=== PATIENT | male | born 1955 | race Caucasian/White ===

== ENCOUNTER → 2018-06-25 10:56 | Outpatient (CLI) | payer OTHER, SELFPAY ==
[2018-06-18 15:38] VITALS: BMI 20.7
--- NOTE | 2018-06-25 10:58 | US_ITS ---
STUDY: SCROTUM ULTRASOUND REASON FOR EXAM: Male, 62 years old. Left testicular swelling. TECHNIQUE: Ultrasound evaluation of the scrotum was performed with color Doppler and static decker-scale imaging. COMPARISON: Prior comparison studies are not available for review at this time. FINDINGS: RIGHT TESTICLE INTRATESTICULAR: There is a normal size of the right testicle. The right testicle measures 5.5 x 3.2 x 3.7 cm. There is a homogenous echotexture. There is normal arterial and normal venous vascularity. There is no demonstrated right testicular mass or cyst. EXTRATESTICULAR: The epididymis is normal in size. The epididymis head measures 1.3 x 2.1 x 0.8 cm. There is normal vascularity of the epididymis. There is a well-defined cystic structure within the epididymis, without internal echoes, consistent with an epididymal cyst. There is a small hydrocele. There is no demonstrated varicocele. There is no demonstrated extratesticular mass or cyst. LEFT TESTICLE INTRATESTICULAR: There is a normal size of the left testicle. The left testicle measures 5.2 x 3.2 x 4.1 cm. There is a homogenous echotexture. There is normal arterial and normal venous vascularity. There is no demonstrated left testicular mass or cyst. EXTRATESTICULAR: The epididymis is difficult to visualize There is a large hydrocele. This compresses the left testis and epididymis. There appear to be some septations within the large hydrocele suggesting it may be a complex process. There is no demonstrated varicocele. There is no demonstrated extratesticular mass or cyst. US/Testicular with Arterial Flow IMPRESSION: 1. Normal bilateral testicles. 2. Very large left-sided hydrocele with septations suggesting possible pyocele versus hematocele. 3. Right-sided epididymal cyst. Electronically Signed: Julita Dunn MD at 12:02 EST , Service support ,
== END ==
PROVIDERS: Family Provider Family Medicine; PCP Family Medicine; Referring Provider Surgery; Visit Provider Surgery
DX: N50.89 Other specified disorders of the male genital organs (principal)
CPT/HCPCS: 76870; 93976

== ENCOUNTER → 2018-07-03 16:57 | Outpatient (CLI) | payer OTHER, SELFPAY ==
[2018-06-18 15:38] VITALS: BMI 20.7
[2018-07-03 17:05] LABS: Bacteria 0 SEEN /hpf (None Seen); Mucous, Urine 0 SEEN /hpf (<or=2+); Red Blood Cells-Urine 0 SEEN /hpf (0-5); Squamous Epithelial Cells - UA 0 SEEN /hpf (0-5); White Blood Cells 0 SEEN /hpf (0-5)
[2018-07-03 17:58] LABS: Absolute Lymphocyte Count 2.26 X10^3/ul (0.83-4.51); Absolute Neutrophil Count 4.4 X10^3/uL (2.0-7.7); Basophil# 0.05 X10^3/uL; Basophil% 0.7 % (0-1); Eosinophil# 0.11 X10^3/uL; Eosinophils% 1.5 % (0-5); Hematocrit 44.8 % (40-54); Hemoglobin 14.7 g/dl (13.0-16.5); Lymphocyte # 2.26 X10^3/ul (4.0); Lymphocyte % 30.7 % (19-41); Mean Corp Hgb Conc 32.8 g/gl (32-36); Mean Corpuscular Hgb 29.9 pg (27.0-32.0); Mean Corpuscular Volume 91.2 fL (80-94); Mean Platelet Vol. 9.7 fl (6.2-12.0); Monocyte# 0.57 X10^3/uL; Monocyte% 7.7 % (0-10); Neutrophil # 4.36 X10^3/uL (2.7-7.7); Neutrophil % 59.3 % (47-70); Platelet Count 249 K/mm3 (150-450); RBC Distribution Width CV 14.1 % (11.6-14.6); RBC Distribution Width SD 46.8 fl (35.1-43.9); Red Blood Count 4.91 M/mm3 (4.6-6.2); White Blood Count 7.4 K/mm3 (4.4-11.0)
[2018-07-03 18:01] LABS: POSITIVE COUNT NO; POSITIVE DIFFERENTIAL NO; POSITIVE MORPHOLOGY NO
[2018-07-03 18:06] LABS: Color, Urine Yellow (Yellow); Glucose, Dipstick Normal (Normal); Ketone-Dipstick Negative (Negative); Leukocyte Esterase-Dipstick Negative /ul (Negative); Nitrite-Dipstick Negative (Negative); Occult Blood-Urine 10 /ul (Negative); Protein-Dipstick Negative (Negative); Urine Bilirubin Dipstick Negative (Negative); Urine Clarity Clear (Clear); Urine Urobilinogen Normal (Normal)
[2018-07-03 18:29] LABS: ALB/GLOB Ratio 1.2 RATIO (0.9-2.4); AST(SGOT) 17 U/L (15-37); Alanine Aminotransfer ALT/SGPT 24 U/L (16-61); Albumin, Serum 3.8 g/dL (3.2-5.0); Alkaline Phosphatase 61 U/L (45-117); Anion Gap 8 (5-15); BUN 18 mg/dL (7-18); BUN/Creat Ratio 17.8 RATIO (10-20); Calcium,Total 8.5 mg/dL (8.5-10.1); Chloride 103 mmol/L (98-107); Cholesterol 163 mg/dL (200); Creatinine, Serum 1.01 mg/dL (0.70-1.30); EST Glomerular Filtration Rate 79 mL/min (>60); Est Glom Filt Rate - Afr Amer 96 mL/min (>60); Globulin 3.3 g/dL (2.2-4.2); Glucose 100 mg/dL (74-106); High Density Lipoprotein 50 mg/dL; Potassium 3.8 mmol/L (3.5-5.1); Protein, Total 7.1 g/dL (6.4-8.2); Sodium Level 140 mmol/L (136-145); Thyroid Stim Hormone (TSH) 3.65 uIU/mL (0.358-3.74); Triglycerides 38 mg/dL; Very Low Density Lipoprotein 8 mg/dL (5-40)
== END ==
PROVIDERS: Family Provider Family Medicine; PCP Family Medicine; Referring Provider Family Medicine; Visit Provider Family Medicine
DX: Z01.818 Encounter for other preprocedural examination (principal)
CPT/HCPCS: 80053; 80061; 81001; 84443; 85025

== ENCOUNTER → 2018-07-08 10:37 | Outpatient (CLI) | payer OTHER, SELFPAY ==
[2018-06-18 15:38] VITALS: BMI 20.7
--- NOTE | 2018-07-08 10:40 | ECHOD_ITS ---
Reason For Study: Preop, Abn EKG Procedure This was a 2D Doppler, Color Flow transthoracic echocardiogram. Exam performed in department. Left Ventricle Normal LV size. Left ventricular systolic function is normal. The estimated ejection fraction is 60 %. Stage 1 diastolic dysfunction. No regional wall motion abnormalities noted. Right Ventricle Normal RV size. Normal systolic function. Atria Normal left atrium. Normal right atrium. Mitral Valve Normal mitral valve. Mild (1+) eccentric mitral valve insufficiency. Tricuspid Valve Normal tricuspid valve. Mild tricuspid valve insufficiency. Pulmonary artery systolic pressure is 28 mmHg. Aortic Valve Normal aortic valve. Trisinus/trileaflet aortic valve. Pulmonic Valve Normal pulmonic valve. Great Vessels Normal aortic root. The pulmonary artery is normal size. Normal inferior vena cava. Pericardium/Pleural No pericardial effusion. Medication Performed a rapid injection of agitated mix of 9 cc saline and 1cc air to assess for atrial septal defect. MMode/2D Measurements & Calculations LVIDd: 5.9 cm IVSd: 0.95 cm Ao root diam: 3.5 cm LVIDs: 4.3 cm LVPWd: 0.89 cm RVDd: 4.5 cm FS: 26.7 % LAV(MOD-bp): 28.4 ml LVAd ap4: 33.3 cm2 SV(MOD-sp4): 74.4 ml LAV(MOD-bp) Indexed: 16.5 ml/m2 EDV(MOD-sp4): 118.5 ml LAV(MOD-sp2): 32.0 ml EDV(sp4-el): 119.1 ml LAV(MOD-sp4): 22.2 ml LVAs ap4: 18.1 cm2 ESV(MOD-sp4): 44.1 ml ESV(sp4-el): 44.3 ml EF(MOD-sp4): 62.8 % EF(sp4-el): 62.8 % SV(sp4-el): 74.8 ml LA A4 area: 11.1 cm2 LA dimension(2D): 2.9 cm RA A4 area: 13.0 cm2 Doppler Measurements & Calculations MV E max lobo: 63.6 cm/sec Lat Peak E' Lobo: 9.6 cm/sec Med Peak E' Lobo: 5.4 cm/sec MV A max lobo: 75.5 cm/sec E/E' lat: 6.6 E/E' med: 11.9 MV E/A: 0.84 Ao V2 max: 133.7 cm/sec LV V1 max: 109.7 cm/sec PA V2 max: 88.3 cm/sec Ao max P.2 mmHg LV V1 max P.8 mmHg Ao V2 mean: 90.4 cm/sec Ao mean P.7 mmHg Ao V2 VTI: 28.2 cm TR max lobo: 245.0 cm/sec TR max P.0 mmHg Interpretation Summary Normal LV size. Left ventricular systolic function is normal. The estimated ejection fraction is 60 %. Stage 1 diastolic dysfunction. Mild (1+) eccentric mitral valve insufficiency. Mild tricuspid valve insufficiency. Ordering Physician: Cameron Stark Referring Physician: Cameron Stark Performed By: Zaina Campa, SHARRI, RVT
== END ==
PROVIDERS: Family Provider Family Medicine; PCP Family Medicine; Referring Provider Family Medicine; Visit Provider Family Medicine
DX: I51.7 Cardiomegaly (principal)
CPT/HCPCS: 93306; A4216

== ENCOUNTER 2018-07-29 05:11 | Day surgery (SDC) | payer SELFPAY, OTHER ==
[2018-06-18 15:38] VITALS: BMI 20.7
[2018-07-29] VITALS (8 sets, daily range): BP systolic 101–140; BP diastolic 73–86; PULSE 44–77; RESP 14–16; TEMP 36.1–37.7; O2SAT 94–98; BMI 23.8
--- NOTE | 2018-07-29 05:23 | EKG12_ITS ---
Test Reason : PRE OP Blood Pressure : / mmHG Vent. Rate : 068 BPM Atrial Rate : 068 BPM P-R Int : 166 ms QRS Dur : 100 ms QT Int : 382 ms P-R-T Axes : 078 069 057 degrees QTc Int : 406 ms Normal sinus rhythm Normal ECG Confirmed by CARLO JAIN, TREASURE ([id number]), senior editor DOLORES RAMIREZ ([id number]) on 07/31/2018 10:45:50 AM Referred By: Chacho Walters Confirmed By:TREASURE MATOS MD
--- NOTE | 2018-07-29 06:18 | PCM.HP.STD ---
Problem List (1) Inguinal hernia of right side without obstruction or gangrene Status: Acute History of Present Illness Date of Admission: 07/29/18 The patient is a 62 year old M presented to my office on June 18, 2018. He was complaining of 2 different problems. One was bulging swelling discomfort in his right groin. He also had left testicular swelling. He had not had any type of updated medical evaluation for a period of time. He was evaluated was felt to have a right inguinal hernia and also a left hydrocele. Testicular ultrasound was obtained confirming the left hydrocele. The patient then saw who confirmed that he could proceed with surgical intervention on the left. A combined operation with general surgery addressing the right inguinal hernia and urology addressing the left hydrocele was scheduled. The patient denies any other acute medical problems at this time Past Medical History Medical History: Medical History (Last Reviewed 06/18/18 @ 15:37 by Jen Chacon) Inguinal hernia of right side without obstruction or gangrene (Acute) K40.90 Hydrocele of spermatic cord, testis, or tunica vaginalis (Acute) N43.3 Right groin pain R10.31 Allergies No Known Allergies Allergy (Unverified 07/22/18 15:07) Home Medications: Ambulatory Orders Medication Instructions Recorded multivitamin tablet 1 tab PO DAILY 06/18/18 Smoking Status: Never smoker Review of Systems Constitutional: Denies: Anorexia HEENT: Denies: Difficulty Swallowing Cardiovascular: Denies: Chest Pain Respiratory: Denies: Cough Gastrointestinal: Reports: - - Right groin bulge and swelling. Denies: Abdominal Pain Neurological: Denies: Balance problems Psychiatric: Denies: Anxiety Endocrine: Denies: Change in Body Habitus VTE Information - Inpt Only VTE Present on Admission: No - Physical Exam General: Alert, Oriented x3, Cooperative, No apparent distress HEENT: Atraumatic Oral: Moist Mucosa Neck: Supple Lungs: Clear to auscultation Cardiovascular: Regular rate, Regular Rhythm Abdomen: Bowel Sounds Present, Soft, Non Tender, - - Reducible right inguinal hernia detected. Testicles are descended. Large hydrocele on the left Extremities: No clubbing Neurological: Cranial nerves II-XII grossly intact Psych/Mental Status: Normal Affect Vital Signs Temp Pulse Resp BP Pulse Ox 99.9 F H 77 14 140/86 H 94 07/29/18 05:39 07/29/18 05:39 07/29/18 05:39 07/29/18 05:39 07/29/18 05:39 Oxygen Delivery Method Room Air Weight: 147 lb 4.301 oz Body Mass Index (BMI) 23.8 Laboratory Tests Past 24 Hrs 07/29/18 07/29/18 05:55 05:55 WBC Pending RBC Pending Hgb Pending Hct Pending MCV Pending MCH Pending MCHC Pending RDW Pending RDW Differential Pending Plt Count Pending Sodium Pending Potassium Pending Chloride Pending Carbon Dioxide Pending Anion Gap Pending BUN Pending Creatinine Pending Est GFR (MDRD) Af Amer Pending Est GFR (MDRD) Non-Af Pending BUN/Creatinine Ratio Pending Glucose Pending Calcium Pending Assessment/Plan All Active Problems (Last Reviewed 06/18/18 @ 15:37 by Jen Chacon) Inguinal hernia of right side without obstruction or gangrene (Acute) Hydrocele of spermatic cord, testis, or tunica vaginalis (Acute) I am recommending a classic approach to her right inguinal herniorrhaphy. I anticipate utilizing mesh in a Lakhwinder technique. I have described the technique, benefits, risks, alternatives. He has had an opportunity to ask and have questions answered. We will proceed as noted. On my discussion with him in the office he wanted to proceed with a classic approach of the right inguinal hernia because it could be done at a monitored anesthesia care local anesthetic. The type of anesthesia the patient receives will be there for more determined this to 's requirement. Primary care physician Dr Cameron Walters M.D., F.A.C.S.
[2018-07-29 06:25] LABS: Anion Gap 7 (5-15); BUN 17 mg/dL (7-18); BUN/Creat Ratio 17.6 RATIO (10-20); Calcium,Total 8.6 mg/dL (8.5-10.1); Chloride 105 mmol/L (98-107); Creatinine, Serum 0.96 mg/dL (0.70-1.30); EST Glomerular Filtration Rate 83 mL/min (>60); Est Glom Filt Rate - Afr Amer 101 mL/min (>60); Estimated Creatinine Clearance 70.15 ml/min; Glucose 104 mg/dL (74-106); Potassium 3.7 mmol/L (3.5-5.1); Sodium Level 140 mmol/L (136-145)
[2018-07-29 06:39] LABS: Hematocrit 42.7 % (40-54); Hemoglobin 14.6 g/dl (13.0-16.5); Mean Corp Hgb Conc 34.2 g/gl (32-36); Mean Corpuscular Hgb 30.7 pg (27.0-32.0); Mean Corpuscular Volume 89.7 fL (80-94); Mean Platelet Vol. 9.3 fl (6.2-12.0); Platelet Count 490 K/mm3 (150-450); RBC Distribution Width CV 13.9 % (11.6-14.6); RBC Distribution Width SD 45.1 fl (35.1-43.9); Red Blood Count 4.76 M/mm3 (4.6-6.2); Scan Indicated on CBC? Y/N NO; White Blood Count 8.8 K/mm3 (4.4-11.0)
--- NOTE | 2018-07-29 07:08 | PCM.DC.GS ---
Discharge Diet: Light diet - advance as tolerated - if you have questions about your diet instructions, please talk to you doctor. Discharge Activity: May Not Drive - No driving for 3-5 days or until off of narcotic pain medication please May shower in (days): 1 Lifting Restrictions: 10 pounds Call your doctor if your incision/area has: Continuous Slow Oozing, Sudden Increased Bleeding, Increased Pain/ Swelling, Increased Redness, Foul Smelling Discharge Call your doctor if you observe: Fever of 101 or Higher Suture Line Care: Avoid Pulling/Pushing, Avoid Pinching/Bending Additional Dressing/Incision Instructions:: Change or remove dressing in 4 days. Leave steri-strips in place for 1 week. Allergies/Adverse Reactions: Allergies No Known Allergies Allergy (Unverified 07/22/18 15:07) Medications to take at Discharge multivitamin tablet 1 tab PO DAILY 06/18/18 Hydrocodone Bitart/Apap 5-325 [[place] 5MG-325MG] 1 tablet PO Q4H PRN PRN 3 Days #10 tablet 07/29/18 The following prescriptions were given: Hydrocodone Bitart/Apap 5-325 [[place] 5MG-325MG] 1 tablet PO Q4H PRN PRN 3 Days #10 tablet PRN Reason: Pain Primary Care Physician: Cameron Stark MD [Primary Care Provider] - Test Results: Test results from this visit will be discussed in further detail at your follow-up appointment, if applicable. Please Follow Up With: Chacho Walters MD - [phone] When: Call to make an appointment to be seen in about 10 days.
[2018-07-29] MEDS: Cefazolin 2 GM in 0.9% Normal Saline 100 ML IV (07:13)
--- NOTE | 2018-07-29 07:15 | HYD_PTH ---
PATIENT: BUTCH TEMPLE LOC: [facility] [place] U#:[id number] AGE/SX: 62/M ROOM: RE07/29/[address]: Dr. Chacho Walters MD : [id number] BED: DIS: 07/29/2018 SPEC #: [id number] RECD: 07/29/18 10:56 STATUS: VERONICA REDom #: [id number] ANGE: 07/29/18 07:[address]: Chacho Walters DEPT: SURGICAL PATHOLOGY RECD BY: Bg Puckett ENTERED: 07/29/18 13:01 SP TYPE: HYDROCELE OTHR DR: Dr. Cameron Stark MD Tissues: Inguinal region, NOS Procedures: Surgery Specimen Level II HEADER OPERATION: Hernia, inguinal with mesh; hydrocelectomy PRE-OP DIAGNOSIS: Right inguinal hernia; hydrocele left testes TISSUE SUBMITTED: Sac, hydrocele MICROSCOPIC DIAGNOSIS Hydrocele sac: Pieces of fibroadipose and fibroconnective tissue, consistent with hydrocele sac. SJ:yola 07/30/18 MICROSCOPIC DESCRIPTION Slides are reviewed. GROSS DESCRIPTION Received in fixative is one container labeled with the patient's name and designated hydrocele sac. The specimen consists of two distinct fragments of pink-koch soft tissue that in aggregate measure 4.5 x 3.5 x 0.5 cm. Serial sections do not reveal mass lesions. Tube Making Machine Operator sections are submitted in two cassettes. / AM:yola 07/29/18 TC:5 CPT: 97708
--- NOTE | 2018-07-29 08:24 | PCM.OPRPT ---
Problem List (1) Inguinal hernia of right side without obstruction or gangrene Status: Acute Report of Operation Date of Procedure: 07/29/18 Pre-Operative Diagnosis: Right inguinal hernia Post-Operative Diagnosis: Indirect right inguinal hernia Surgery/Procedure Performed:: Lakhwinder right inguinal herniorrhaphy Description of Surgical Findings:: Timeout and informed consent was obtained. 62-year-old gent was taken down from placement table. He underwent monitored anesthesia care. Ancef 2 g given intravenous preoperatively. The right groin was sterilely prepped draped. 1% lidocaine mixed 50-50 with 0.5% Marcaine was used as local anesthetic. A total of 17 cc was used. Local was instilled. A transverse incision was made in the right groin. Sharp dissection carried down through the subcutaneous tissue. Hemostasis 10 with 3-0 Vicryl ligatures. The external oblique identified and incised along with the fascia. The ilioinguinal nerve was identified and protected secured with the cord structures. Sharp and blunt dissection was used to identify the indirect sac this was dissected free all the way up to the internal ring and then it was inverted. The direct and indirect space completely dissected free. The transversalis fascia was approximated to itself with a running simple suture of 3-0 Ethibond so as to reapproximate the internal ring. Then a apron cover of polypropylene mesh was placed. The tails were secured laterally with 3-0 Ethibond. The tails were shortened the mesh was then placed was nicely tucked beneath the external oblique laterally and nicely cover the direct and indirect area. It was meticulously secured in place with 3-0 Ethibond simple sutures to the pubic tubercle aponeurosis of the internal/external oblique and to the shelving edge of Poupart's. Excellent positioning was achieved. The external oblique was approximated with a running 3-0 Vicryl. Subdermal tissues approximated interrupted 3-0 Vicryl. Skin edges approximated running septic or 4-0 Monocryl. Steri-Strips Telfa OpSite dressings were applied. Sponge and instrument and needle counts were reported the surgeon be correct. Specimens none. Blood loss minimal. Drains none. The patient subsequently underwent a left hydrocelectomy per Dr. Mireille Walters M.D., F.A.C.S. Type of Anesthesia:: Local MAC Anesthesiologist: Mekhi Angeles
[2018-07-29] MEDS: Bupivacaine Mpf 0.5% 30 ML VIAL (08:30)
--- NOTE | 2018-07-29 08:59 | DCINST_ITS ---
Discharge Diet: Light diet - advance as tolerated - if you have questions about your diet instructions, please talk to you doctor. Discharge Activity: May Not Drive - No driving for 3-5 days or until off of narcotic pain medication please May shower in (days): 1 Call your doctor if your incision/area has: Continuous Slow Oozing, Sudden Increased Bleeding, Increased Pain/ Swelling, Increased Redness, Foul Smelling Discharge Call your doctor if you observe: Fever of 101 or Higher Suture Line Care: Avoid Pulling/Pushing, Avoid Pinching/Bending Additional Dressing/Incision Instructions:: Change or remove dressing in 4 days. Leave steri-strips in place for 1 week. Instructions: Discharge Instructions: Caring for Your Raimundo Rudolph Drainage Tube, Hydrocele Surgery (Hydrocelectomy) Allergies/Adverse Reactions: Allergies No Known Allergies Allergy (Unverified 07/22/18 15:07) Medications to take at Discharge multivitamin tablet 1 tab PO DAILY 06/18/18 Hydrocodone Bitart/Apap 5-325 [[place] 5MG-325MG] 1 tablet PO Q4H PRN PRN 3 Days #10 tablet 07/29/18 The following prescriptions were given: Hydrocodone Bitart/Apap 5-325 [[place] 5MG-325MG] 1 tablet PO Q4H PRN PRN 3 Days #10 tablet PRN Reason: Pain Primary Care Physician: Cameron Stark MD [Primary Care Provider] - Test Results: Test results from this visit will be discussed in further detail at your follow- up appointment, if applicable. Please Follow Up With: Abelardo Kendrick MD When: make appt this coming to remove drain.
--- NOTE | 2018-07-29 09:01 | PCM.OPRPT ---
Report of Operation Date of Procedure: 07/29/18 Pre-Operative Diagnosis: Left hydrocele Post-Operative Diagnosis: Left hydrocele Surgery/Procedure Performed:: Left hydrocelectomy Description of Surgical Findings:: 62-year-old male with a history of a very large symptomatic left hydrocele presents today to the operating room for left hydrocelectomy also to the age he is can have a hernia repair by general surgery. 62-year-old male taken back to the operating room with smooth induction of general anesthesia he was placed supine on the table. The left scrotum was shaved prepped and draped in usual sterile fashion and made a small 2 and 2-1/2 cm incision in the mid line of the scrotum dissected down to the hydrocele sac opened up the sac drain the sac completely and then deliver the testicle clean the sac off the edges of the testicle excised the sac circumferentially obtained deep good hemostasis and then created a dartos pouch, placed the testicle back in the dartos pouch place a drain around the testicle to ensure no recurrence of the hydrocele the drain was then stitched in place on suction we then closed the dartos layer with 2-0 Vicryl and then closed the skin with 4-0 Monocryl. The testicle was normal the cord was normal we used a mixture of lidocaine and Marcaine for the anesthesia local, and he also was under MAC local. Patient tolerated procedure well will be given fluffs and scrotal support I need to see him next to get the drain out. Type of Anesthesia:: Local MAC Anesthesiologist: Mekhi Angeles Drains: ROBERT drain - Admit VTE Documentation VTE Present on Admission: No VTE Mechan Device Prophylaxis: SCD's
[2018-07-29] MEDS: HYDROcodone Bitartrate/Apap 5/325 Tablet PO (10:10)
== END 2018-07-29 12:39 | disposition home or self-care (01) ==
LOC: SDC 05:14 → AC 05:16
PROVIDERS: Urology; Family Provider Family Medicine; PCP Family Medicine; Referring Provider Surgery; Visit Provider Surgery
PROC: (CPT 49505; principal; 2018-07-29 07:00)
PROC: (CPT 55040; 2018-07-29 07:00)
DX: K40.90 Unilateral inguinal hernia, without obstruction or gangrene, not specified as recurrent (principal); N43.3 Hydrocele, unspecified
CPT/HCPCS: 00830; 49505; 55040; 36415; 80048; 85027; 88302; 93005; J7120; C1781; J2405

== ENCOUNTER 2023-05-18 07:33 | Emergency (ER) | payer OTHER, SELFPAY ==
[2023-05-18 07:34] VITALS: BP 166/100; PULSE 78; RESP 14; TEMP 36.8; O2SAT 98; BMI 25.9
--- NOTE | 2023-05-18 08:02 | CT_ITS ---
STUDY: CT ABDOMEN AND PELVIS WITH CONTRAST REASON FOR EXAM: Male, 67 years old. Left flank pain. History of prior right inguinal hernia repair. RADIATION DOSAGE (If Supplied By Facility): CTDIvol = ( 12.78 ) mGy, DLP = ( 1214.56 ) mGycm TECHNIQUE: Transaxial images were obtained from the dome of the diaphragm to the symphysis pubis without oral contrast. IV 100mL Isovue-300 was administered. Sagittal and coronal images were reconstructed. Individualized dose optimization techniques were used for this CT. COMPARISON: None. FINDINGS: The visualized lung bases are unremarkable. The visualized portions of the heart are within normal limits. Normal liver. Normal gallbladder and extrahepatic biliary system. Normal spleen. Normal pancreas. Normal bilateral adrenal glands. Bilateral parapelvic renal cysts more prominent in the left kidney. Mild degree of left perinephric stranding. There is a small hiatal hernia. Normal small intestine. There are multiple colonic diverticula consistent with diverticulosis. The appendix is visualized and appears normal. There is diffuse atherosclerotic calcification of the abdominal aorta, without a demonstrated aneurysm. Normal inferior vena cava. Normal retroperitoneum. Normal urinary bladder. Marked degree of enlargement of the prostate with indentation at the bladder base. The prostate measures 5.5 size by 5.6 cm. This causes indentation of the bladder base. There is also evidence of enlargement of the seminal vesicles bilaterally. Small amount of free fluid is seen in the cul-de-sac. Normal abdominal wall. There are degenerative changes of the visualized lumbar spine. Large left hydrocele. Small right hydrocele. Correlation with a scrotal sonogram is recommended. CT/Abdomen/Pelvis W IV Cont ONLY IMPRESSION: Markedly enlarged prostate with indentation of the bladder base. Bilateral parapelvic cysts more prominent on the left side. Large left hydrocele. Small right hydrocele. Correlation with ultrasound is recommended. Electronically Signed: Gordon Curiel MD at 9:19 EST ,
--- NOTE | 2023-05-18 08:03 | ED.VIS.GI ---
HPI HPI - GI History of Present Illness Chief Complaint: Abd Pain Informant: patient Abdominal Pain/Flank Pain Onset: Yesterday Context: Sudden Onset Timing: Intermittent Quality: Aching Location: Left Flank Current Severity: Severe Maximum Severity: Severe Worsened by: Nothing Relieved by: Nothing Nausea/Vomiting/Emesis GI Symptom: Negative for Nausea or Vomiting Diarrhea/Melena/Hematochezia GI Symptom: Positive for - (Feels like needs to have a bowel movement or pass gas but cannot; last bowel movement yesterday normal); Negative for Diarrhea, Melena or Hematochezia Associated Symptoms Associated Symptoms: Negative for Dysuria, Frequency, Hematuria or Urgency Narrative Narrative: Patient presenting with pain in his left mid abdomen. Started suddenly, has been intermittent, started almost 24 hours ago. Remote right inguinal herniorrhaphy no other abdominal surgeries. No urinary symptoms. Not really into his back, no thoracic symptoms or cough recently. [facility] Medical History (Updated 05/18/23 @ 10:[address] Anam Carrillo MD) Hydrocele of spermatic cord, testis, or tunica vaginalis Inguinal hernia of right side without obstruction or gangrene Right groin pain Home Medications multivitamin 1 tab PO DAILY 06/18/18 [History Last Taken Unknown] oxycodone-acetaminophen 5 mg-325 mg tablet 1 tab PO Q4H PRN Pain 3 days #15 TABLETS 05/18/23 [Rx Last Taken Unknown] Allergy/AdvReac Type Severity Reaction Status Date / Time No Known Allergies Allergy Verified 05/18/23 07:34 Surgical History (Updated 05/18/23 @ 08:[address] Anam Carrillo MD) S/P repair of hydrocele S/P right inguinal herniorrhaphy Social History Smoking Status: Never smoker alcohol intake: never ROS ROS ED Constitutional Constitutional ED: Denies chills or fever(s) Eyes Eyes: Denies change in vision or diplopia ENT ENT ED: Denies rhinorrhea or sore throat Cardiovascular Cardiovascular: Denies chest pain or palpitations Respiratory/Chest Respiratory/Chest: Denies cough or dyspnea Gastrointestinal Gastrointestinal: Reports abdominal pain; Denies diarrhea, nausea or vomiting Genitourinary Genitourinary ED: Denies dysuria, hematuria or urinary frequency Musculoskeletal Musculoskeletal: Denies back pain or neck pain Integumentary Denies abscess or rash Neurologic Neurologic: Denies headache(s), paresthesias or weakness Psychiatric Psychiatric: Denies anxiety or suicidal thoughts EXAM Physical Exam Const Vital Signs: 05/18/23 07:34 Temperature 98.2 F Temperature Source Temporal Pulse Rate 78 Respiratory Rate 14 Blood Pressure 166/100 H Blood Pressure Mean 122 Pulse Ox 98 Oxygen Delivery Method Room Air Positive well nourished and well developed General Appearance ED: well developed and NAD HEENT Reports moist mucous membranes normocephalic and atraumatic Eyes PERRL and EOMs intact bilaterally Neck full ROM and supple Resp normal respiratory effort and clear to auscultation bilaterally Cardio regular rate, regular rhythm and no murmurs GI non-distended GI Narrative: Tender in the left flank, the lateral abdomen. No CVA tenderness. No rash in his flank or abdomen or back. He does have some dry erythematous skin in the umbilicus that he states is chronic, it is nontender and there is no hernia. There is no guarding or rebound. There is no pulsatile mass. No Browne Gunn sign no Parrott sign. Auscultation: normoactive bowel sounds Palpation: soft Back/Spine no CVA tenderness General Back: other FROM Extremity normal to inspection General Extremety ED: Negative for edema, pulses abnormal or tenderness General Extremity: Negative for edema or pulses abnormal Neuro oriented x3, CN's II-XII intact bilaterally and no sensory deficits noted Sensorium / Orientation: awake and alert Motor Exam: strength 5/5 throughout Psych mental status grossly normal and thought process normal Skin no rashes or lesions noted and no wounds MDM MDM MDM Narrative Medical decision making narrative: Patient with left flank pain differential includes kidney stone, diverticulitis, less likely to be AAA but it is also in the differential. Also could be functional GI pain without any acute inflammatory cause. Given all of this labs, urinalysis, CT were is all indicated and ordered/obtained. In the meantime he was given morphine and Zofran for the pain, he asked for more pain medication so he was given Toradol which really helped more than the morphine. CT images were reviewed as well as the result, I agree with the resolved however, I see what appears to be a proximal ureteral stone that appears to be obstructing and causing some mild hydronephrosis. I discussed with radiology, he reviewed the images and agrees and is putting an addendum in citing a 2 mm ureteral stone on the left, which explains his pain. He is not having any scrotal pain or discomfort, those findings were discussed with him and are likely chronic, they can be followed up on as an outpatient, for now his pain is well-controlled, there is no sign of any infection on urinalysis showing blood only, he is given a prescription for analgesics, strainers to go, and appropriate instructions concerning follow-up and when to return he is comfortable with that plan. Expectant management is indicated, for a 2 mm stone he is not likely to require urologic removal/management. History & Record Review Discussion w/independent historian: Patient and Significant other Lab Data Attestation: I reviewed the patient's lab results. Labs: Laboratory Results - last 24 hr 05/18/23 05/18/23 07:47 09:30 WBC 11.7 H RBC 5.24 Hgb 15.6 Hct 46.4 MCV 88.5 MCH 29.8 MCHC 33.6 RDW Std Deviation 43.7 RDW Coeff of Hoda 13.5 Plt Count 302 MPV 9.3 Immature Gran % (Auto) 0.300 Neut % (Auto) 81.4 H Lymph % (Auto) 9.5 L Peach % (Auto) 8.3 Eos % (Auto) 0.1 Baso % (Auto) 0.4 Absolute Neuts (auto) 9.5 H Absolute Lymphs (auto) 1.11 Nucleated RBC % 0 Sodium 136 Potassium 3.1 L Chloride 102 Carbon Dioxide 28.0 Anion Gap 6 BUN 15 Creatinine 1.37 H Estim Creat Clear Calc 44.27 Est GFR (MDRD) Af Amer 66 Est GFR (MDRD) Non-Af 55 L BUN/Creatinine Ratio 10.9 Glucose 124 H Calcium 8.6 Urine Color Yellow Urine Clarity Clear Urine pH 7.0 Ur Specific [place] 1.010 Urine Protein Negative Urine Glucose (UA) Normal Urine Ketones 15 H Urine Occult Blood 250 H Urine Nitrite Negative Urine Bilirubin Negative Urine Urobilinogen Normal Ur Leukocyte Esterase Negative Urine RBC 25-50 SEEN Urine WBC 0-5 SEEN Ur Squamous Epith Cells 0 SEEN Urine Bacteria 0 SEEN Urine Mucus 0 SEEN Radiography Diagnostic Testing: Clinical Impression(s) from Imaging Studies Abdomen/Pelvis CT 05/18/23 08:02 IMPRESSION: Markedly enlarged prostate with indentation of the bladder base. Bilateral parapelvic cysts more prominent on the left side. Large left hydrocele. Small right hydrocele. Correlation with ultrasound is recommended. Electronically Signed: Gordon Curiel MD at 9:19 EST , Management Discussion w/another healthcare provider: Radiologist Discharge Plan Triage Chief Complaint: Abd Pain ED Provider: Anam Carrillo Dx/Rx/DC Orders Clinical Impression: Ureteral colic, Ureterolithiasis Instructions: ED Kidney Stone with Pain Prescriptions: New oxycodone-acetaminophen [oxycodone-acetaminophen] 5-325 mg tablet 1 tab PO Q4H PRN (Reason: Pain) 3 Days Qty: 15 0RF No Action multivitamin tablet 1 tab PO DAILY Primary Care Provider: Cameron Stark Referrals: Cameron Stark MD [Primary Care Provider] - 3-5 Days if not improving Disposition Disposition: Home, Self Care
[2023-05-18 08:12] LABS: Absolute Lymphocyte Count 1.11 X10^3/uL (0.83-4.51); Absolute Neutrophil Count 9.5 X10^3/uL (2.0-7.7); Basophil# 0.05 X10^3/uL; Basophil% 0.4 % (0-1); Eosinophil# 0.01 X10^3/uL; Eosinophils% 0.1 % (0-5); Hematocrit 46.4 % (40-54); Hemoglobin 15.6 g/dL (13.0-16.5); Lymphocyte # 1.11 X10^3/ul (0.83-4.51); Lymphocyte % 9.5 % (19-41); Mean Corp Hgb Conc 33.6 g/dL (32-36); Mean Corpuscular Hgb 29.8 pg (27.0-32.0); Mean Corpuscular Volume 88.5 fL (80-94); Mean Platelet Vol. 9.3 fl (6.2-12.0); Monocyte# 0.97 X10^3/uL; Monocyte% 8.3 % (0-10); NRBC Flagged by Analyzer 0 % (0-5); Neutrophil % 81.4 % (47-70); Platelet Count 302 K/mm3 (150-450); RBC Distribution Width CV 13.5 % (11.6-14.6); RBC Distribution Width SD 43.7 fl (35.1-43.9); Red Blood Count 5.24 M/mm3 (4.6-6.2); White Blood Count 11.7 K/mm3 (4.4-11.0)
[2023-05-18] MEDS: Ondansetron 4 MG/2 ML Vial IV (08:18)
[2023-05-18] MEDS: Morphine 4 MG/ML Syringe IV (08:18)
[2023-05-18] MEDS: 0.9% Normal Saline (1000mL) 1,000 ML 125 ML IV (08:20)
[2023-05-18 08:27] LABS: Anion Gap 6 (5-15); BUN 15 mg/dL (7-18); BUN/Creat Ratio 10.9 RATIO (10-20); Calcium,Total 8.6 mg/dL (8.5-10.1); Chloride 102 mmol/L (98-107); Creatinine, Serum 1.37 mg/dL (0.70-1.30); EST Glomerular Filtration Rate 55 mL/min (>60); Est Glom Filt Rate - Afr Amer 66 mL/min (>60); Estimated Creatinine Clearance 44.27 ml/min; Glucose 124 mg/dL (74-106); Potassium 3.1 mmol/L (3.5-5.1); Sodium Level 136 mmol/L (136-145)
[2023-05-18] MEDS: Ketorolac 15 MG/ML Vial IV (09:28)
[2023-05-18 09:36] LABS: Bacteria 0 SEEN /hpf (None Seen); Mucous, Urine 0 SEEN /hpf (<or=2+); Squamous Epithelial Cells - UA 0 SEEN /hpf (0-5)
[2023-05-18 09:53] LABS: Color, Urine Yellow (Yellow); Glucose, Dipstick Normal (Normal); Ketone-Dipstick 15 mg/dl (Negative); Leukocyte Esterase-Dipstick Negative /ul (Negative); Nitrite-Dipstick Negative (Negative); Occult Blood-Urine 250 /ul (Negative); Protein-Dipstick Negative (Negative); Urine Bilirubin Dipstick Negative (Negative); Urine Clarity Clear (Clear); Urine Urobilinogen Normal (Normal)
[2023-05-18 10:00] LABS: Red Blood Cells-Urine 25-50 SEEN /hpf (0-5); White Blood Cells 0-5 SEEN /hpf (0-5)
[2023-05-18 10:52] VITALS: BP 130/74; PULSE 87; RESP 18; TEMP 36.7; O2SAT 99
== END 2023-05-18 10:56 | disposition home or self-care (01) ==
PROVIDERS: Emergency Provider Emergency Medicine; PCP Family Medicine; Visit Provider Emergency Medicine
DX: N20.1 Calculus of ureter (principal)
CPT/HCPCS: 74177; 80048; 81001; 85025; 96374; 96375; 99283; J7030; Q9967; A4216; J2405